=== PATIENT | male | born 1965 | race Caucasian/White ===

== ENCOUNTER 2017-11-20 16:31 | Inpatient (IN) | payer BC ==
[2017-11-20] MEDS ORDERED: HEPARIN SODIUM,PORCINE 5,000 UNIT/ML 1 ML VIAL IV STA (16:34)
[2017-11-20] MEDS ORDERED: MORPHINE SULFATE 4 MG/ML SYRINGE IV STA (16:35)
[2017-11-20] MEDS ORDERED: NITROGLYCERIN-D5W PMX 50 MG in DEXTROSE/WATER 1 250ML.BAG IV ONE (16:36)
[2017-11-20] MEDS ORDERED: ATORVASTATIN 80 MG TAB PO STA (16:40)
[2017-11-20] MEDS ORDERED: HEPARIN SOD,PORK IN 0.45% NACL 25,000 UNIT in 0.45% NACL 1 500ML.BAG IV SCH (16:45)
--- NOTE | 2017-11-20 16:45 | ED ---
Chest Pain HPI - General Stated Complaint: chest pain Time Seen by Provider: 11/20/17 16:34 Source: patient Mode of arrival: EMS Limitations: no limitations - History of Present Illness Initial Comments: This 52-year-old white male presents with the complaint of some chest pain. It is into the midsternal region and described as a pressure without radiation. It is associated with some shortness of breath. He states that it initially occurred approximately 2 days ago while shoveling. It is much more severe currently/today. He does present via EMS with evidence of an ST elevation myocardial infarction on prehospital EKG. He denies any known previous history of cardiac disease. He denies any known medical conditions. He does follow up with Dr. Maldonado for primary care issues. He receives aspirin via EMS as well as 2 sublingual nitroglycerin and 5 no grams of morphine without relief. He states that the symptoms are fairly severe. No other complaints or modifying factors. Review of Systems ROS Statement: Those systems with pertinent positive or pertinent negative responses have been documented in the HPI. ROS Other: All systems not noted in ROS Statement are negative. Past Medical History Past Medical History: No Reported History History of Any Multi-Drug Resistant Organisms: None Reported Additional Past Surgical History / Comment(s): torn retina Past Psychological History: No Psychological Hx Reported Smoking Status: Former smoker Past Alcohol Use History: None Reported Past Drug Use History: None Reported General Exam - General Exam Comments Initial Comments: GENERAL: The patient is well nourished and well hydrated. Appears in significant distress. VITAL SIGNS: Heart rate, blood pressure, respiratory rate reviewed as recorded in nurse's notes. EYES: Pupils are round and reactive. Extraocular movements are intact. No conjunctival / lid redness or swelling. ENT: No external evidence of injury, swelling, or ecchymosis. Airway is patent. Throat is clear. NECK: Nontender. No swelling or evidence of injury. No subcutaneous emphysema. Trachea is midline. No thyroid mass. HEART: Regular rate and rhythm. Good peripheral pulses. LUNGS/CHEST: Breath sounds clear and equal bilaterally. No rales, rhonchi, or wheezes. No ecchymosis, subcutaneous emphysema, or tenderness. ABDOMEN: Abdomen soft without tenderness. No palpable masses or organomegaly. No peritoneal signs. No abdominal wall swelling or ecchymosis. EXTREMITIES: No extremity tenderness. Normal muscle tone and function. No thoracolumbar tenderness. NEUROLOGIC: Sensation is grossly intact. Cranial nerve exam reveals face is symmetrical, tongue is midline, speech is clear. SKIN: No abrasions or ecchymosis is noted. No induration or masses noted. PSYCHIATRIC: Alert and oriented. Appropriate behavior and judgment. Limitations: no limitations Course Vital Signs 11/20/17 16:32 Temperature 96.8 F L Pulse Rate 76 Respiratory 18 Rate Blood Pressure 167/76 O2 Sat by Pulse 100 Oximetry Chest Pain MDM - [facility] The patient was seen and examined. All diagnostics were reviewed thus far. This only did include an EKG which shows evidence of an anteroseptal myocardial infarction. This shows a normal sinus rhythm. There is some associated ST elevation in the lateral leads as well. The cardiology team was contacted prior to arrival and does meet the patient in the emergency department as well. Some initial orders are placed the patient is directly transferred up to the heart sanitation laborer very shortly after arrival for further heart cath and subsequent intervention. Case will be discussed with internal medicine shortly for admission with cardiology to consult. Disposition Clinical Impression: STEMI (ST elevation myocardial infarction), Chest pain, Dyspnea Disposition: ADMITTED IP TO THIS HOSP Condition: Critical Referrals: None,Stated [Primary Care Provider] - 1-2 days Time of Disposition: 16:44 Decision Date: 11/20/17 Decision Time: 16:44
[2017-11-20 16:54] LABS: HCT 42.2 % (39.0-53.0); HGB 13.5 gm/dL (13.0-17.5); MCH 29.3 pg (25.0-35.0); MCV 91.7 fL (80.0-100.0); Mean Platelet Volume 7.4; Platelet Count 352 k/uL (150-450); RBC 4.61 m/uL (4.30-5.90); RDW 12.5 % (11.5-15.5); WBC 16.7 k/uL (3.8-10.6)
[2017-11-20] MEDS: LIDOCAINE 2% INJ 20 MG/ML SQ ONE ×2 (16:59→17:58)
[2017-11-20] MEDS ORDERED: MIDAZOLAM 2 MG/2 ML VIAL ONE (17:00)
[2017-11-20] MEDS ORDERED: fentaNYL (PF) 50 MCG/ML 2 ML AMP ONE (17:01)
[2017-11-20] MEDS ORDERED: LIDOCAINE 2% INJ 20 MG/ML SQ ONE (17:04)
[2017-11-20] MEDS ORDERED: fentaNYL (PF) 50 MCG/ML 2 ML AMP IV ONE (17:04)
[2017-11-20] MEDS ORDERED: MIDAZOLAM 2 MG/2 ML VIAL IV ONE (17:04)
[2017-11-20] MEDS ORDERED: BIVALIRUDIN BOLUS 250 MG/50 ML IV ONE (17:05)
[2017-11-20 17:06] LABS: ALT 34 U/L (21-72); AST 19 U/L (17-59); Albumin 4.1 g/dL (3.5-5.0); Alkaline Phosphatase 55 U/L (38-126); Anion Gap 13 mmol/L; Blood Urea Nitrogen 18 mg/dL (9-20); Calcium 9.8 mg/dL (8.4-10.2); Carbon Dioxide 22 mmol/L (22-30); Chloride 105 mmol/L (98-107); Glucose 124 mg/dL (74-99); Potassium 3.7 mmol/L (3.5-5.1); Sodium 140 mmol/L (137-145); Total Bilirubin 0.2 mg/dL (0.2-1.3); Total Protein 6.3 g/dL (6.3-8.2)
[2017-11-20] MEDS ORDERED: BIVALIRUDIN 250 MG in SODIUM CHLORIDE 0.9% 50 ML IV ONE ×2 (17:06→17:45)
[2017-11-20] MEDS ORDERED: SODIUM CHLORIDE 0.9% 500 ML IV ONE ×2 (17:07)
[2017-11-20 17:12] LABS: Prothrombin Time 9.7 sec (9.0-12.0)
[2017-11-20] MEDS ORDERED: LIDOCAINE 2% SYG (PF) 100 MG/5 ML IV ONE ×2 (17:15)
[2017-11-20 17:18] LABS: Partial Thromboplastin Time 20.4 sec (22.0-30.0)
[2017-11-20] MEDS ORDERED: METOPROLOL TARTRATE 5 MG/5 ML VIAL IVP ONE ×2 (17:20→17:21)
[2017-11-20] MEDS ORDERED: POTASSIUM CHLORIDE 10 MEQ in WATER FOR INJECTION 1 100ML.BAG IVPB STA (17:26)
[2017-11-20] MEDS: NITROGLYCERIN 1000MCG/10ML SYRINGE INTRACORON ONE ×2 (17:30→17:45)
[2017-11-20 17:31] LABS: Creatine Kinase MB 0.7 ng/mL (0.0-2.4)
[2017-11-20] MEDS ORDERED: DIGOXIN 250 MCG/ML 2 ML AMP IVP STA (17:31)
[2017-11-20 17:41] LABS: Troponin I 0.12 ng/mL (0.000-0.034)
[2017-11-20] MEDS ORDERED: IOHEXOL 350 MG/ML (PER ML) 100ML BTL INJ ONE ×2 (17:46)
[2017-11-20] MEDS ORDERED: PRASUGREL 10 MG TAB ONE (17:50)
[2017-11-20] MEDS ORDERED: PRASUGREL 10 MG TAB PO ONE (17:52)
[2017-11-20] MEDS ORDERED: HYDROmorphone 2 MG/ML 1 ML SYRINGE ONE (17:55)
[2017-11-20] MEDS ORDERED: HYDROmorphone 2 MG/ML 1 ML SYRINGE IV ONE (17:57)
[2017-11-20] MEDS ORDERED: ACETAMINOPHEN TAB 325 MG TAB PO PRN (18:02)
[2017-11-20] MEDS ORDERED: NALOXONE 0.4 MG/ML 1 ML VIAL IV PRN (18:02)
[2017-11-20] MEDS ORDERED: MELATONIN 3 MG TABLET PO PRN (18:02)
[2017-11-20] MEDS ORDERED: ATROPINE SULFATE 0.1 MG/ML 10ML SYRINGE IV PRN (18:17)
[2017-11-20] MEDS ORDERED: MAG HYDROX/AL HYDROX/SIMETH 30 ML CUP PO PRN (18:17)
[2017-11-20] MEDS ORDERED: RX INFO: IV CONTRAST WAS GIVEN 1 EACH MISC MISCELLANE PRN (18:17)
[2017-11-20] MEDS ORDERED: ZOLPIDEM 5 MG TAB PO PRN (18:17)
[2017-11-20] MEDS ORDERED: NITROGLYCERIN SL TABS 0.4 MG TAB SUBLINGUAL PRN (18:17)
[2017-11-20 18:37] LABS: Glucose,Whole Blood 112 mg/dL (75-99)
[2017-11-20] MEDS: SODIUM CHLORIDE 0.9% 1,000 ML IV SCH ×2 (18:41→18:42)
[2017-11-20] MEDS: CARVEDILOL 3.125 MG TAB PO SCH (18:46)
[2017-11-20 19:08] VITALS: BMI 32.1
[2017-11-20] MEDS: LOSARTAN 25 MG TAB PO SCH (21:24)
[2017-11-20] MEDS: FAMOTIDINE 20 MG TAB PO SCH (21:24)
[2017-11-21 00:48] LABS: Partial Thromboplastin Time 26.1 sec (22.0-30.0); Prothrombin Time 9.9 sec (9.0-12.0)
[2017-11-21] MEDS: HEPARIN SODIUM,PORCINE 5,000 UNIT/ML 1 ML VIAL IV PRN ×2 (01:39→06:50)
[2017-11-21 05:03] LABS: Creatine Kinase MB 93.2 ng/mL (0.0-2.4)
[2017-11-21 05:04] LABS: Troponin I 45.1 ng/mL (0.000-0.034)
[2017-11-21 06:20] LABS: Basophils % (A) 0 %; Eosinophils # (A) 0.2 k/uL (0-0.7); Eosinophils % (A) 1 %; HCT 44.6 % (39.0-53.0); HGB 13.8 gm/dL (13.0-17.5); Lymphocytes # (A) 2.3 k/uL (1.0-4.8); Lymphocytes % (A) 12 %; MCH 28.8 pg (25.0-35.0); MCHC 30.8 g/dL (31.0-37.0); MCV 93.5 fL (80.0-100.0); Mean Platelet Volume 7.3; Monocytes # (A) 0.9 k/uL (0-1.0); Monocytes % (A) 5 %; Neutrophils % (A) 81 %; Platelet Count 273 k/uL (150-450); RBC 4.77 m/uL (4.30-5.90); RDW 12.7 % (11.5-15.5); WBC 18.6 k/uL (3.8-10.6)
[2017-11-21 06:32] LABS: Anion Gap 9 mmol/L; Blood Urea Nitrogen 15 mg/dL (9-20); Calcium 9.1 mg/dL (8.4-10.2); Carbon Dioxide 23 mmol/L (22-30); Chloride 108 mmol/L (98-107); Glucose 132 mg/dL (74-99); Magnesium 1.9 mg/dL (1.6-2.3); Potassium 4.2 mmol/L (3.5-5.1); Sodium 140 mmol/L (137-145)
--- NOTE | 2017-11-21 07:01 | CC ---
CARDIAC CATHETERIZATION REPORT DATE OF SERVICE: 11/20/2017. PROCEDURES: 1. Left heart catheterization and coronary angiography. 2. PTCA and stenting of totally occluded ostial LAD in the setting of a ST-elevation CA. Reperfusion achieved in 48 minutes. 3. PTCA and stenting of a high-grade 80% mid LAD after the origin of the diagonal branch with a drug-eluting stent. PERFORMED BY: Dr. Ulysses Rajan. ANESTHESIA: Moderate conscious sedation time 61 minutes. CLINICAL INFORMATION: Mr. Denny Alexander is a 52-year-old gentleman who has complaints of some arthritis smokes 1 to 1-1/2 pack daily. Does not have any other risk factors. His primary care physician is Dr. Maldonado. He has not had any stress test in the recent or remote past. About 2 days ago, he had chest pain strongly suggestive of angina while he was shoveling snow which he ignored and did not seek medical attention and today while at work, he had a prolonged pain with diaphoresis, radiation to both upper extremities and he came into the emergency room with a ST elevation CA involving the anterior leads and was advised prompt cardiac catheterization. The patient was hemodynamically stable. There was no family to talk to when I began the procedure. CARDIAC CATHETERIZATION FINDINGS: 1. Right-dominant system with a 40-50% mid RCA lesion. 2. No significant disease in the circumflex. 3. Left main is a very small vessel, patent. 4. 100% occlusion of the LAD at the ostium. 5. PTCA and stenting of ostial LAD with a 3.0 caliber 15 mm long Xience drug-eluting stent. 6. After the LAD was opened up, mid LAD had a lesion of 80%. This was addressed with a 2.75 caliber 8 mm long Xience stent. 7. Left ventricle end-diastolic pressure was 18-19 mmHg without gradient across the aortic valve. A Perclose was used to secure hemostasis, but continued to ooze and therefore Femstop was applied. PROCEDURE NOTE: Under local anesthesia and strict aseptic precautions, a 6-Kittitian introducer was placed in the right femoral artery using a 3.5 curved left Samina type guide catheter I performed selective coronary angiography of left system and performed intervention of the LAD and then performed selective coronary angiography of RCA and also checked LV pressures but did not perform an LV-gram. The patient received Angiomax bolus and infusion as per protocol. He also received 60 mg of Effient. He developed runs of ventricular tachycardia requiring intravenous lidocaine and also paroxysmal atrial tachycardia for which I gave him a single dose of digoxin in addition to intravenous Lopressor. Patient was in sinus rhythm with a total resolution of chest pain after the procedure and his ST-segment elevation improved remarkably. He remained hemodynamically stable. A Perclose was used to secure hemostasis, but there continued to be some oozing and therefore Femstop was applied. I used a BMW wire to cross the lesion and a JL3.5 guide catheter of 6-Kittitian caliber. Two drug-eluting stents were deployed. The patient tolerated the procedure well. CARDIAC CATHETERIZATION FINDINGS: Left ventricular end-diastolic pressure was 18-19 mmHg without any gradient across aortic valve. CORONARY ANGIOGRAPHY FINDINGS: 1. Right coronary artery: Technically a dominant vessel. Has about a 40% mid lesion distally bifurcates into a good-sized PDA and PLV. There is moderate calcification involving the proximal portion of the RCA. No other significant lesions were noted. PDA and PLV are of good caliber and supplies a sizable amount of myocardium. RCA is a dominant vessel. 2. Left main coronary artery: Short patent disease-free vessel that bifurcates into LAD and circumflex. 3. Left anterior descending coronary artery: This vessel is totally occluded, seen as a stump at the ostium without any antegrade flow. 4. Left posterior circumflex coronary artery: This is a nondominant vessel of good caliber and distribution distally continues as a posterolateral branch has minor irregularities. No significant disease. 5. Left ventriculogram: This was not performed. FINAL IMPRESSION: This patient has a total occlusion of LAD and a PCI was advised and performed immediately with excellent result. PCI PROCEDURE DETAILS: PCI was accomplished expeditiously. The vessel was opened up in 48 minutes with resolution of chest pain and improvement in EKG and patient remained hemodynamically stable. He had 2 drug-eluting stents, 1 in the ostial LAD of 3.0 caliber 15 mm length and this was a drug-eluting Xience stent. Mid LAD was addressed with a 2.75 caliber 8 mm long drug-eluting Xience stent. Results were discussed with the patient, his and 2 daughters. He was sent to the ICU in a stable condition with a FemoStop. MMODL / IJN: [id number] /
--- NOTE | 2017-11-21 07:04 | LTR ---
DATE OF SERVICE: 11/20/[address] Maldonado: Please find enclosed my detailed cardiac cath and PTCA report for your records. This gentleman presented with acute anterior wall OH, underwent prompt stenting of ostial LAD and mid LAD with excellent results. Hopefully we have limited the amount of myocardial damage. Based on clinical course, I expect he will be in the hospital for the next 3 days or so. I have counseled the patient regarding the need to quit smoking. He will be on dual antiplatelet therapy without interruption for one year. Thank you for a referral and please call for questions. With kindest regards, Sincerely yours, Ulysses Rajan MD. RODGER / DEIDRAN: [id number] /
--- NOTE | 2017-11-21 07:10 | CONS ---
CONSULTATION Mr. Denny Alexander is a 52-year-old gentleman who sees Dr. Maldonado in the outpatient setting. He smokes 1-1/2 pack daily. He does not have any other major risk factors. His cholesterol status is unknown. He has arthritis pain for which he takes Motrin on a p.r.n. basis. Two days ago while shoveling snow, he developed chest pain suggestive of angina for which he did not seek any medical attention. Today while he was at work, he developed chest pain with radiation to both upper extremities associated with some diaphoresis and he was brought in by EMS and there was evidence of ST elevation and labor delivery rn was alerted promptly. He received some ambulance and some 2 sublingual nitroglycerin with modest relief. He also received some morphine. I evaluated him in the labor delivery rn. The patient had chest pain of 5/10, had anterior ST elevation, but was hemodynamically stable. PAST MEDICAL HISTORY: Unremarkable other than arthritis for which he takes Motrin. 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 He has no known diagnosis of hypertension, diabetes, myocardial infarction or CVA. SOCIAL HISTORY: Patient said he smokes 1 to 1-1/2 packs cigarettes. Initially started with half a pack but admitted to 1-1/2 pack daily as did his . He does not consume alcohol on a regular basis. MEDICATIONS: Are none. ALLERGIES: ALLERGIC TO AMOXICILLIN. REVIEW OF SYSTEMS: Remarkable for chest pain 2 days ago and again this morning. Has no hematemesis, melena, genitourinary symptoms, fever with chills or cough with expectoration. EXAMINATION: Blood pressure is 127/80, pulse rate is about 70 per minute. HEENT unremarkable fundus was not examined by me. NECK: Supple. No JVD. I do not hear a carotid bruit. Heart exam reveals S1, S2 heard normally but distantly lungs are clear with fair air entry. Abdomen is soft, nontender. Lower extremities reveal palpable pulses. No edema. Central nervous system is normal. EKG revealed sinus rhythm with anterior ST elevation. IMPRESSION: 1. Acute anterior ST-elevation myocardial infarction. 2. History of smoking. 3. Degenerative joint disease. RECOMMENDATIONS: I am recommending prompt cardiac cath and intervention. I explained to the patient rationale, risks, benefits, options and proceeded to perform procedure expeditiously. MMODL / IJN: [id number] /
[2017-11-21] MEDS: FAMOTIDINE 20 MG TAB PO SCH ×2 (08:10→21:45)
[2017-11-21] MEDS: ASPIRIN 81 MG PO SCH (08:10)
[2017-11-21] MEDS: CARVEDILOL 3.125 MG TAB PO SCH ×2 (08:10→16:46)
[2017-11-21] MEDS: MAGNESIUM SULFATE-D5W PMX 1 GM in DEXTROSE/WATER 1 100ML.BAG IVPB SCH ×2 (08:10→09:16)
[2017-11-21] MEDS: CHOLECALCIFEROL 1,000 UNIT TAB PO SCH (08:11)
[2017-11-21] MEDS: SODIUM CHLORIDE 0.9% 1,000 ML IV SCH ×3 (08:11→21:42)
[2017-11-21] MEDS: PRASUGREL 10 MG TAB PO SCH (08:11)
--- NOTE | 2017-11-21 10:28 | ECHOF ---
Referral Reason:Acute Ant STEMI S/P PCI of LAD MEASUREMENTS -------- HEIGHT: 180.3 cm WEIGHT: 104.3 kg BP: 120/69 RVIDd: 2.1 cm (< 3.3) IVSd: 1.6 cm (0.6 - 1.1) LVIDd: 5.3 cm (3.9 - 5.3) LVPWd: 1.1 cm (0.6 - 1.1) IVSs: 1.9 cm LVIDs: 4.1 cm LVPWs: 1.5 cm LAESV Index (A-L): 25.97 ml/m Ao Diam: 4.3 cm (2.0 - 3.7) AV Cusp: 2.4 cm (1.5 - 2.6) LA Diam: 3.6 cm (2.7 - 3.8) MV EXCURSION: 19.436 mm (> 18.000) MV EF SLOPE: 146 mm/s (70 - 150) EPSS: 1.4 cm MV E Shamar: 0.80 m/s MV DecT: 175 ms MV A Shamar: 0.79 m/s MV E/A Ratio: 1.01 RAP: 5.00 mmHg RVSP: 9.13 mmHg FINDINGS -------- Sinus rhythm. This was a technically good study. The left ventricular size is normal. There is mild concentric left ventricular hypertrophy. Overa ll left ventricular systolic function is moderate-severely impaired with, an EF between 30 - 35 %. Mid anterior LV wall motion is hypokinetic. Apical anterior LV wall motion is hypokinetic. Apic al lateral LV wall motion is hypokinetic. Apical inferior LV wall motion is hypokinetic. Apical septum LV wall motion is hypokinetic. Anterseptal Hypokinesis Septal Hypokinesis The right ventricle is normal in size and function. The left atrium is normal in size. The right atrium is normal in size. The aortic valve is trileaflet, and appears structurally normal. No aortic stenosis or regurgitation. The mitral valve is normal. There is trace mitral regurgitation. Trace tricuspid regurgitation present. The right ventricular systolic pressure, as measured by Dopp ler, is 9.13mmHg. There is no pulmonic regurgitation present. The aortic root is mildy dilated measuring 4.3 cm Normal inferior vena cava with normal inspiratory collapse consistent with estimated right atrial pre ssure of 5 mmHg. There is no pericardial effusion. CONCLUSIONS -------- 1. Sinus rhythm. 2. This was a technically good study. 3. The left ventricular size is normal. 4. There is mild concentric left ventricular hypertrophy. 5. Overall left ventricular systolic function is moderate-severely impaired with, an EF between 30 - 35 %. 6. Mid anterior LV wall motion is hypokinetic. 7. Apical anterior LV wall motion is hypokinetic. 8. Apical lateral LV wall motion is hypokinetic. 9. Apical inferior LV wall motion is hypokinetic. 10. Apical septum LV wall motion is hypokinetic. 11. Anterseptal Hypokinesis 12. Septal Hypokinesis 13. The left atrium is normal in size. 14. The aortic valve is trileaflet, and appears structurally normal. No aortic stenosis or regurgitat ion. 15. There is trace mitral regurgitation. 16. Trace tricuspid regurgitation present. 17. The right ventricular systolic pressure, as measured by Doppler, is 9.13mmHg. 18. There is no pulmonic regurgitation present. 19. The aortic root is mildy dilated measuring 4.3 cm. 20. Normal inferior vena cava with normal inspiratory collapse consistent with estimated right atrial pressure of 5 mmHg. 21. There is no pericardial effusion. DIRECTOR GLOBAL MARKET RESEARCH: Ana Maria Stahl RDCS
--- NOTE | 2017-11-21 10:47 | P.PN ---
Subjective Progress Note Date: 11/21/17 This is a 51-year-old gentleman who was admitted yesterday with a prolonged chest pain and evidence of anterior wall myocardial infarction. Patient had stent placement of the LAD by Dr. SHELLY Rajan. Patient is feeling better today. Denies any chest pain, shortness of breath or dizziness. Lungs are clear. Heart is regular. No JVD. No peripheral edema. Echo Cardigan showed severe hypokinesis of the anteroapical and septal area with an ejection fraction of 30- 35%. Patient is on Coreg, TANISHA inhibitor and lipid-lowering agent along with a dual antiplatelets. Will transfer him to telemetry unit and increase activity as tolerated. Further examination depend upon the clinical course Objective - Vital Signs Vital signs: Vital Signs Temp 98.7 F 11/21/17 08:00 Pulse 81 11/21/17 10:00 Resp 23 11/21/17 10:00 BP 141/69 11/21/17 10:00 Pulse Ox 96 11/21/17 10:00 Intake & Output 11/20/17 11/21/17 11/21/17 18:59 06:59 18:59 Intake Total 192.6 1430.453 740 Output Total 825 Balance 192.6 605.453 740 Weight 104.326 kg 104.7 kg 104.7 kg Intake: IV 192.6 Intake, IV Titration 1180.453 500 Amount Heparin Sod,Pork in 0.45% 280.453 NaCl 25,000 unit In 0.45 % NaCl 1 500ml.bag @ 9.59 UNITS/KG/HR 20 mls/hr IV .Q24H АННА Rx#:[id number] Magnesium Sulfate-D5w Pmx 200 1 gm In Dextrose/Water 1 100ml.bag @ 100 mls/hr IVPB Q1H АННА Rx#: [id number] Sodium Chloride 0.9% 1, 900 300 000 ml @ 75 mls/hr IV . [id number] АННА Rx#:[id number] Oral 240 Tube Feeding 250 Output: Urine 825 Other: Voiding Method Urinal # Voids 1 1 - Exam GENERAL EXAM: Patient is alert and oriented and doesn't appear to be in any acute distress HEENT: Normocephalic. Normal reaction of pupils, equal size, normal range of extraocular motion. No erythema or exudates in the throat. NECK: No masses, no nuchal rigidity. CHEST: No chest wall deformity. LUNGS: Equal air entry with no crackles or wheeze. HEART: S1 and S2 normal with no audible mumurs or gallops. Regular rhythm, femorals equal on both sides.. ABDOMEN: No hepatosplenomegaly, normal bowel sounds, no guarding or rigidity. SKIN: No rashes CENTRAL NERVOUS SYSTEM: No focal deficits. EXTREMITIES: No cyanosis, clubbing or edema. The puncture site: Soft without any hematoma. - Labs CBC & Chem 7: 11/21/17 05:32 11/21/17 05:32 Labs: Abnormal Lab Results - Last 24 Hours (Table) 11/20/17 11/20/17 11/20/17 Range/Units 16:32 16:32 16:32 WBC 16.7 H (3.8-10.6) k/uL MCHC (31.0-37.0) g/dL Neutrophils # (1.3-7.7) k/uL APTT (22.0-30.0) sec Chloride (98-107) mmol/L Glucose 124 H (74-99) mg/dL POC Glucose (mg/dL) (75-99) mg/dL CK-MB (CK-2) (0.0-2.4) ng/mL Troponin I 0.120 H* (0.000-0.034) ng/mL 11/20/17 11/20/17 11/20/17 Range/Units 16:32 18:35 22:33 WBC (3.8-10.6) k/uL MCHC (31.0-37.0) g/dL Neutrophils # (1.3-7.7) k/uL APTT 20.4 L (22.0-30.0) sec Chloride (98-107) mmol/L Glucose (74-99) mg/dL POC Glucose (mg/dL) 112 H (75-99) mg/dL CK-MB (CK-2) (0.0-2.4) ng/mL Troponin I 29.400 H* (0.000-0.034) ng/mL 11/21/17 11/21/17 11/21/17 Range/Units 03:41 05:32 05:32 WBC 18.6 H (3.8-10.6) k/uL MCHC 30.8 L (31.0-37.0) g/dL Neutrophils # 15.0 H (1.3-7.7) k/uL APTT (22.0-30.0) sec Chloride 108 H (98-107) mmol/L Glucose 132 H (74-99) mg/dL POC Glucose (mg/dL) (75-99) mg/dL CK-MB (CK-2) 93.2 H* (0.0-2.4) ng/mL Troponin I 45.100 H* (0.000-0.034) ng/mL 11/21/17 11/21/17 Range/Units 05:32 05:32 WBC (3.8-10.6) k/uL MCHC (31.0-37.0) g/dL Neutrophils # (1.3-7.7) k/uL APTT 40.1 H (22.0-30.0) sec Chloride (98-107) mmol/L Glucose (74-99) mg/dL POC Glucose (mg/dL) (75-99) mg/dL CK-MB (CK-2) (0.0-2.4) ng/mL Troponin I 42.900 H* (0.000-0.034) ng/mL Assessment and Plan (1) Chest pain Current Visit: Yes Status: Acute Code(s): R07.9 - CHEST PAIN, UNSPECIFIED SNOMED Code(s): 29345790 (2) STEMI (ST elevation myocardial infarction) Current Visit: Yes Status: Acute Code(s): I21.3 - ST ELEVATION (STEMI) MYOCARDIAL INFARCTION OF [facility] SITE SNOMED Code(s): 372350933 Plan: Continue current management. Transfer to telemetry unit. Increase activity. Further recommendations depend upon the clinical course
[2017-11-21] MEDS ORDERED: NICOTINE POLACRILEX 2 MG GUM BUCCAL PRN (13:44)
--- NOTE | 2017-11-21 13:47 | P.HPIM ---
History of Present Illness H&P Date: 11/21/17 Chief Complaint: Chest pain HISTORY OF PRESENT ILLNESS: 52-year-old male patient of Dr. Rickey Parisi with chronic stable medical conditions that include chronic cigarette smoker and arthritis, presents to the emergency department with complaints of chest pain. Midsternal described as pressure without radiation with associated shortness of breath. BUN about 2 days ago while shoveling snow. While at work on 11/20/2017 he developed prolonged chest pain with diaphoresis radiation to both upper extremities, It was much more severe today than it was previously. Arrived via EMS prehospital EKG reveals ST elevation myocardial infarction. Was taken directly to the cardiac catheterization lab. Patient had total occlusion of the left anterior descending artery and a PCI was performed received 2 drug-eluting stents one of the ostial LAD and mid LAD. REVIEW OF SYSTEMS GEN.: [ Tired] EYES: [None] HEENT: [None] NECK: [None] RESPIRATORY: [Some shortness of breath] CARDIOVASCULAR: [Chest pain yesterday and today with diaphoresis and radiation] GASTROINTESTINAL: [None] GENITOURINARY: [None] MUSCULOSKELETAL: [Back pain] LYMPHATICS: [None] HEMATOLOGICAL: [None] PSYCHIATRY: [None] NEUROLOGICAL: [None] PAST MEDICAL HISTORY Past medical history: Arthritis Past surgical history: Past psychological history: None SOCIAL HISTORY: Additional psychological/social history: None Smoking use history: Current smoker smoking 1-1-1/2 packs per day 30 years Alcohol use history: Denies Drug use history: Denies Marital status: Living situation: Lives with 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 ALLERGIES: NO KNOWN ALLERGIES HOME MEDICATION: Vitamin B-12 one tablet by mouth daily Ibuprofen 800 mg by mouth twice a day when necessary Cholecalciferol 2000 unit's by mouth daily. VITAL SIGNS: [Reviewed. BMI noted] GENERAL: [Average built, sitting up, comfortable]. EYES: [Pupils equal. Conjunctiva penny]l. HENT: [Normocephalic,External appearance of nose and ears normal, oral cavity grossly normal]. NECK: [JVD not raised; masses not palpable]. HEART: [First and second heart sounds are normal; no edema]. LUNGS:[ Respiratory rate normal; clear to auscultation]. ABDOMEN: [Soft, nontender, liver spleen not palpable, no masses palpable]. LYMPHATICS: [No lymph nodes palpable in the axilla and neck]. PSYCH: [Alert and oriented x3; mood and affect penny]l. NEUROLOGICAL: [Cranial nerves grossly intact; no facial asymmetry, power and sensation grossly intact]. INVESTIGATIONS: LABS: White blood cell count 18.6, chloride 108, troponin from 11/20/2017 29.4, 11/21/2017: 45.1, 42.9. ASSESSMENT: -ST elevation [place] with total occlusion of the left anterior descending artery, status post PTCA with 2 drug-eluting stents placed in the LAD. -Osteoarthritis of multiple joints, bilateral. -Chronic nicotine dependence in a patient who is a current cigarette smoker smoking 1-1-1/2 packs a day. PLAN: Home medications reordered, IV fluids continue. Nicotine patch and gum ordered. Smoking cessation counseling provided. Additional medications includes Coreg, TANISHA inhibitor, lipid-lowering agent along with dual antiplatelet medication. Plan of care discussed at the bedside we will follow closely. CONTENT CURATOR STATEMENT: Patient was seen and examined by nurse practitioner Haylee Clark and all elements of the case were discussed with attending Dr. Cade. Past Medical History Past Medical History: No Reported History History of Any Multi-Drug Resistant Organisms: None Reported Additional Past Surgical History / Comment(s): torn retina Past Anesthesia/Blood Transfusion Reactions: No Reported Reaction Past Psychological History: No Psychological Hx Reported Smoking Status: Former smoker Past Alcohol Use History: None Reported Past Drug Use History: None Reported Medications and Allergies Home Medications Medication Instructions Recorded Confirmed Type Cholecalciferol (Vitamin D3) 2,000 unit PO DAILY 11/20/17 11/20/17 History [Vitamin D3] Ibuprofen [Motrin] 800 mg PO BID PRN 11/20/17 11/20/17 History Vitamin B (Unknown Dose) 1 tab PO DAILY 11/20/17 11/20/17 History Allergies Allergy/AdvReac Type Severity Reaction Status Date / Time No Known Allergies Allergy Verified 11/20/17 19:18 Physical Exam Vitals: Vital Signs Temp Pulse Pulse Resp BP BP Pulse Ox 11/21/17 08:00 98.7 F 86 17 142/82 98 11/21/17 07:30 98.7 F 84 20 125/73 97 11/21/17 07:00 69 12 131/71 97 11/21/17 06:30 77 11 L 120/69 98 11/21/17 06:00 78 8 L 132/58 97 11/21/17 05:30 78 9 L 140/64 97 11/21/17 05:00 76 9 L 166/89 97 11/21/17 04:30 79 9 L 141/70 97 11/21/17 04:00 98.5 F 78 10 L 140/82 98 11/21/17 03:30 84 13 143/79 97 11/21/17 03:00 78 11 L 145/75 98 11/21/17 02:30 73 12 149/85 97 11/21/17 02:00 73 10 L 158/74 98 11/21/17 01:30 72 11 L 153/77 97 11/21/17 01:00 69 11 L 155/82 98 11/21/17 00:30 65 9 L 148/83 99 11/21/17 00:06 68 8 L 151/79 99 11/21/17 00:00 98.5 F 64 9 L 151/79 99 11/20/17 23:30 65 10 L 156/79 98 11/20/17 23:00 62 15 158/82 99 11/20/17 22:30 62 11 L 131/83 99 11/20/17 22:00 70 12 150/80 98 11/20/17 21:30 66 9 L 142/80 98 11/20/17 21:00 67 9 L 148/84 99 11/20/17 20:30 82 18 147/77 98 11/20/17 20:00 98.3 F 80 12 150/91 99 11/20/17 19:30 77 16 150/87 99 11/20/17 19:10 82 13 150/87 99 11/20/17 19:02 87 18 150/87 100 11/20/17 19:00 97.6 F 89 17 149/76 99 11/20/17 18:50 84 20 149/76 100 11/20/17 18:47 97.6 F 81 16 149/76 100 11/20/17 18:40 83 14 99 11/20/17 18:30 83 8 L 100 11/20/17 18:29 76 14 11/20/17 16:53 97.6 F 81 18 149/76 11/20/17 16:32 96.8 F L 76 18 167/76 100 Intake and Output 11/20/17 11/21/17 11/21/17 22:59 06:59 14:59 Intake Total 492.6 1130.453 490 Output Total 825 Balance 492.6 305.453 490 Intake: IV 192.6 Intake, IV Titration 300 880.453 250 Amount Heparin Sod,Pork in 0.45% 280.453 NaCl 25,000 unit In 0.45 % NaCl 1 500ml.bag @ 9.59 UNITS/KG/HR 20 mls/hr IV .Q24H АННА Rx#:[id number] Magnesium Sulfate-D5w Pmx 100 1 gm In Dextrose/Water 1 100ml.bag @ 100 mls/hr IVPB Q1H АННА Rx#: [id number] Sodium Chloride 0.9% 1, 300 600 150 000 ml @ 75 mls/hr IV . [id number] АННА Rx#:[id number] Oral 240 Tube Feeding 250 Output: Urine 825 Other: # Voids 0 1 Weight 104.326 kg 104.7 kg Results CBC & Chem 7: 11/21/17 05:32 11/21/17 05:32 Labs: Abnormal Lab Results - Last 24 Hours (Table) 11/20/17 11/20/17 11/20/17 Range/Units 16:32 16:32 16:32 WBC 16.7 H (3.8-10.6) k/uL MCHC (31.0-37.0) g/dL Neutrophils # (1.3-7.7) k/uL APTT (22.0-30.0) sec Chloride (98-107) mmol/L Glucose 124 H (74-99) mg/dL POC Glucose (mg/dL) (75-99) mg/dL CK-MB (CK-2) (0.0-2.4) ng/mL Troponin I 0.120 H* (0.000-0.034) ng/mL 11/20/17 11/20/17 11/20/17 Range/Units 16:32 18:35 22:33 WBC (3.8-10.6) k/uL MCHC (31.0-37.0) g/dL Neutrophils # (1.3-7.7) k/uL APTT 20.4 L (22.0-30.0) sec Chloride (98-107) mmol/L Glucose (74-99) mg/dL POC Glucose (mg/dL) 112 H (75-99) mg/dL CK-MB (CK-2) (0.0-2.4) ng/mL Troponin I 29.400 H* (0.000-0.034) ng/mL 11/21/17 11/21/17 11/21/17 Range/Units 03:41 05:32 05:32 WBC 18.6 H (3.8-10.6) k/uL MCHC 30.8 L (31.0-37.0) g/dL Neutrophils # 15.0 H (1.3-7.7) k/uL APTT (22.0-30.0) sec Chloride 108 H (98-107) mmol/L Glucose 132 H (74-99) mg/dL POC Glucose (mg/dL) (75-99) mg/dL CK-MB (CK-2) 93.2 H* (0.0-2.4) ng/mL Troponin I 45.100 H* (0.000-0.034) ng/mL 11/21/17 11/21/17 Range/Units 05:32 05:32 WBC (3.8-10.6) k/uL MCHC (31.0-37.0) g/dL Neutrophils # (1.3-7.7) k/uL APTT 40.1 H (22.0-30.0) sec Chloride (98-107) mmol/L Glucose (74-99) mg/dL POC Glucose (mg/dL) (75-99) mg/dL CK-MB (CK-2) (0.0-2.4) ng/mL Troponin I 42.900 H* (0.000-0.034) ng/mL Thrombosis Risk Factor Assmnt - Choose All That Apply Each Factor Represents 1 point: Acute [place], Age 41-60 years, Obesity (BMI >25) Thrombosis Risk Factor Assessment Total Risk Factor Score: 3 Thrombosis Risk Factor Assessment Level: Moderate Risk
[2017-11-21] MEDS: NICOTINE 21MG/24HR PATCH TRANSDERM SCH (16:43)
--- NOTE | 2017-11-21 19:43 | HP ---
HISTORY AND PHYSICAL DATE OF SERVICE: 11/21/17 ATTENDING NOTE: Patient seen and examined by me this morning. I discussed with nurse practitioner Amber. The patient presented with anterior chest wall pain. ruled in for acute ST-elevation myocardial infarction. Did have couple of stents to the LAD. The patient's and daughter at the bedside. EXAMINATION: Temperature 97, pulse 77, blood pressure 142/82, pulse ox 98% on 2 L. On examination, BMI 32.2. LUNGS: Decreased breath sounds. Cardiovascular: 1st and 2nd sounds normal. White count 16.7, potassium 3.7, troponin 0.1, 29.4. EKG ST elevation IN. ASSESSMENT: 1. Acute anterior ST-elevation myocardial infarction followed by emergent 2 stents to the LAD. 2. Chronic nicotine dependence patient is a cigarette smoker. 3. Primary osteoarthritis of multiple joints bilateral. 4. Obesity BMI 32.2. 5. Ischemic cardiomyopathy, ejection fraction 30-35% underlying coronary artery disease. 6. Leukocytosis likely secondary to acute myocardial infarction. PLAN: The patient is currently on aspirin, Lipitor,Coreg, Pepcid, Cozaar and Effient. Lying in bed. Smoking cessation counseling was done with the patient, in the presence of the family, given a nicotine patch. More than 3 minutes was spent on this aspect of the case. Copy to Dr. Maldonado. RODGER / DEIDRAN: [id number] /
[2017-11-21] MEDS: LOSARTAN 25 MG TAB PO SCH (21:45)
[2017-11-21] MEDS: ATORVASTATIN 80 MG TAB PO SCH (21:45)
[2017-11-22] MEDS: NICOTINE 21MG/24HR PATCH TRANSDERM SCH (08:29)
[2017-11-22] MEDS: CARVEDILOL 3.125 MG TAB PO SCH ×2 (08:29→17:28)
[2017-11-22] MEDS: SODIUM CHLORIDE 0.9% 1,000 ML IV SCH ×2 (08:30→20:28)
[2017-11-22] MEDS: PRASUGREL 10 MG TAB PO SCH (08:30)
[2017-11-22] MEDS: ASPIRIN 81 MG PO SCH (08:30)
[2017-11-22] MEDS: FAMOTIDINE 20 MG TAB PO SCH ×2 (08:30→20:33)
[2017-11-22] MEDS: CHOLECALCIFEROL 1,000 UNIT TAB PO SCH (08:30)
--- NOTE | 2017-11-22 15:05 | P.PN ---
Subjective Progress Note Date: 11/22/17 Principal diagnosis: Anterior wall IA This is a 52-year-old gentleman admitted to the hospital with an acute care wall IA. He underwent stenting of the LAD by Dr. Miki Rajan. Patient was seen and examined today, feels well, up ambulating in the jo without any difficulty. Echocardiogram with Doppler study was performed which revealed severe hypokinesia of the anterior apical and septal area with an ejection fraction of 30-35%. Dr. Coleman had a discussion with the patient today regarding LifeVest, this will be requested for him, and will be placed prior to discharge. Today, the patient is hemodynamically stable. Objective - Vital Signs Vital signs: Vital Signs Temp 97.8 F 11/22/17 08:30 Pulse 68 11/22/17 11:30 Resp 16 11/22/17 11:30 BP 117/74 11/22/17 11:30 Pulse Ox 96 11/22/17 11:30 Intake & Output 11/21/17 11/22/17 11/22/17 18:59 06:59 18:59 Intake Total 1610 475 360 Output Total 1200 Balance 1610 475 -840 Weight 104.7 kg 102.1 kg Intake: IV 225 Invasive Line 1 225 Intake, IV Titration 650 Amount Magnesium Sulfate-D5w Pmx 200 1 gm In Dextrose/Water 1 100ml.bag @ 100 mls/hr IVPB Q1H АННА Rx#: [id number] Sodium Chloride 0.9% 1, 450 000 ml @ 75 mls/hr IV . [id number] АННА Rx#:[id number] Oral 960 250 360 Output: Urine 1200 Other: Voiding Method Urinal Urinal Urinal # Voids 1 1 - Exam PHYSICAL EXAMINATION: HEENT: [Head is atraumatic, normocephalic. Pupils equal, round. Neck is supple. There is no elevated jugular venous pressure.] HEART EXAMINATION: [Heart S1, S2 normal. No murmur or gallop heard.] CHEST EXAMINATION:[ Lungs are clear to auscultation and precussion. No chest wall tenderness is noted on palpation or with deep breathing.] ABDOMEN: [ Soft, nontender. Bowel sounds are heard. No organomegaly noted]. EXTREMITIES:[ 2+ peripheral pulses with no evidence of peripheral edema and no calf tenderness noted]. NEUROLOGIC [patient is awake, alert and oriented -3.] . - Labs CBC & Chem 7: 11/21/17 05:32 11/21/17 05:32 Labs: Abnormal Lab Results - Last 24 Hours (Table) 11/21/17 Range/Units 16:01 Troponin I 26.300 H* (0.000-0.034) ng/mL Assessment and Plan Plan: Assessment and plan #1 acute anterior wall IA status post stenting of the LAD #2 hyperlipidemia #3 nicotine dependence #4 ischemic cardiomyopathy Plan Patient has been encouraged to be up ambulating in the hallway today. We will plan on discharge home in the next 24 hours if stable. Patient will have a LifeVest placed prior to discharge tomorrow for prevention of sudden cardiac . DNP note has been reviewed, I agree with a documented findings and plan of care. Patient was seen and examined.
--- NOTE | 2017-11-22 15:40 | P.PN ---
Progress Note - Text Progress Note Date: 11/22/17 DATE OF SERVICE: 11/22/2017 PRESENTING COMPLAINT: Chest pain-status post PCI 2 stents to the LAD HISTORY OF PRESENT ILLNESS: 52-year-old male who developed chest pain while he was shoveling snow and ignored symptoms. A few days later while at work patient developed prolonged chest pain with diaphoresis and radiation to both upper extremities. EMS called prehospital EKG revealed ST elevation myocardial infarction. Taken directly to the laboratory machinist for catheterization. Patient had a total occlusion of the left anterior descending artery and a PCI was performed receiving 2 drug- eluting stents 1 in the ostial LAD and mid LAD. INTERVAL HISTORY: 11/22/2017: Sitting up in bed appears comfortable. No further episodes of chest pain or any discomfort at all. No shortness of breath. Ambulatory to and from the bathroom and in the hallway. Tolerating his diet eating between 50 and 75% of his meals. Last BM prior to admission. REVIEW OF SYSTEMS: Done for constitutional ,cardiovascular, GI, pulmonary with relevant findings as above. CURRENT MEDICATIONS Tylenol, Maalox, aspirin, Lipitor, atropine, Coreg, vitamin D3, Pepcid, losartan , melatonin, Narcan, nicotine patch, gum, Nitrostat, Effient, Ambien. PHYSICAL EXAM VITAL SIGNS: Temperature 97.8, pulse 87, respiratory rate 16, blood pressure 107/67, oxygen saturation 96% on room air. GENERAL APPEARANCE: Lying in bed, not in distress. HENT: Normocephalic, JVD not raised. Mass not palpable. Oral cavity normal, external appearance of ears and nose normal. EYES:Pupils equal. Conjunctiva normal. RESPIRATORY: Respiratory effort normal. Lungs diminished bilaterally to auscultation. CARDIOVASCULAR: First and second sounds normal. No edema. ABDOMEN: Soft. Liver and spleen not palpable. No tenderness. No mass palpable. PSYCHIATRY: Alert and oriented x3. Mood and affect normal. INVESTIGATIONS: LABS: None new ASSESSMENT: -Acute anterior ST elevation myocardial infarction followed by 2 emergent stents to the LAD. -Chronic nicotine dependence patient is a smoker. -Primary osteoarthritis multiple joints, bilateral. -Obesity body mass index 32.2. -Ischemic cardiomyopathy, ejection fraction 30-35% underlying coronary artery disease. -Leukocytosis likely secondary to acute myocardial infarction. PLAN: Continue on aspirin Lipitor Coreg Pepcid Cozaar and Effient. Nicotine patch and gum provided smoking cessation counseling provided again at bedside. Plan of care discussed at bedside possible discharge planning for tomorrow. Patient is in agreement. We will follow closely. CIVIL ENGINEERING DRAFTSPERSON statement: Patient was seen and examined by nurse practitioner Haylee Clark and all elements of the case discussed with attending Dr. Cade
--- NOTE | 2017-11-22 19:11 | PN ---
PROGRESS NOTE DATE OF SERVICE: 11/22/2017 ATTENDING NOTE: The patient seen and examined by me. I discussed with my nurse practitioner, Ms. Clark. The patient doing well, sitting up. No chest pain, shortness of breath. EXAMINATION: Afebrile, pulse 67, respirations 16, blood pressure 107/67, pulse ox 96% on room air. LUNGS: Clear. CARDIOVASCULAR: First and second sounds normal. ASSESSMENT: 1. Acute anterior ST-elevation myocardial infarction with 2 stents to the left anterior descending. 2. Chronic nicotine dependence. 3. Ischemic cardiomyopathy. PLAN: Care was discussed with the patient. Again, smoking cessation was reinforced. Follow with Cardiology. MMODL / IJN: [id number] /
[2017-11-22] MEDS: ATORVASTATIN 80 MG TAB PO SCH (20:33)
[2017-11-22] MEDS: LOSARTAN 25 MG TAB PO SCH (20:33)
[2017-11-23 00:22] LABS: Cholesterol 172 mg/dL (<200); HDL Cholesterol 47 mg/dL (40-60); LDL Cholesterol,Calculated 85 mg/dL (0-99); Triglycerides 200 mg/dL (<150)
[2017-11-23] MEDS: PRASUGREL 10 MG TAB PO SCH (08:31)
[2017-11-23] MEDS: ASPIRIN 81 MG PO SCH (08:31)
[2017-11-23] MEDS: NICOTINE 21MG/24HR PATCH TRANSDERM SCH (08:31)
[2017-11-23] MEDS: CHOLECALCIFEROL 1,000 UNIT TAB PO SCH (08:31)
[2017-11-23] MEDS: FAMOTIDINE 20 MG TAB PO SCH (08:31)
[2017-11-23] MEDS: CARVEDILOL 3.125 MG TAB PO SCH (08:31)
[2017-11-23] MEDS: SODIUM CHLORIDE 0.9% 1,000 ML IV SCH (08:32)
[2017-11-23 11:14] VITALS: BP 111/69; PULSE 78; RESP 16; TEMP 98.8
[2017-11-23] MEDS ORDERED: VARENICLINE 0.5 MG TAB PO SCH (13:00)
--- NOTE | 2017-11-23 15:00 | P.PN ---
Subjective Progress Note Date: 11/23/17 Principal diagnosis: Anterior wall IN This is a 52-year-old gentleman admitted to the hospital with an acute care wall IN. He underwent stenting of the LAD by Dr. Miki Rajan. Patient was seen and examined today, feels well, up ambulating in the jo without any difficulty. Echocardiogram with Doppler study was performed which revealed severe hypokinesia of the anterior apical and septal area with an ejection fraction of 30-35%. Dr. Coleman had a discussion with the patient today regarding LifeVest, this will be requested for him, and will be placed prior to discharge. Today, the patient is hemodynamically stable. 11/23/2017 Patient was seen and examined this morning, denies any chest pain, no difficulty in breathing. He's been up ambulating without any difficulty. He may be able to be discharged home today from cardiology standpoint. We'll make him a follow-up appointment to see Dr. SHELLY Rajan in the office post discharge. Objective - Vital Signs Vital signs: Vital Signs Temp 98.8 F 11/23/17 11:14 Pulse 78 11/23/17 11:14 Resp 16 11/23/17 11:45 BP 111/69 11/23/17 11:14 Pulse Ox 92 L 11/23/17 11:14 Intake & Output 11/22/17 11/23/17 11/23/17 18:59 06:59 18:59 Intake Total 720 200 472 Output Total 1200 Balance -480 200 472 Weight 100.8 kg Intake: Oral 720 200 472 Output: Urine 1200 Other: Voiding Method Urinal Urinal # Voids 1 1 - Exam PHYSICAL EXAMINATION: HEENT: [Head is atraumatic, normocephalic. Pupils equal, round. Neck is supple. There is no elevated jugular venous pressure.] HEART EXAMINATION: [Heart S1, S2 normal. No murmur or gallop heard.] CHEST EXAMINATION:[ Lungs are clear to auscultation and precussion. No chest wall tenderness is noted on palpation or with deep breathing.] ABDOMEN: [ Soft, nontender. Bowel sounds are heard. No organomegaly noted]. EXTREMITIES:[ 2+ peripheral pulses with no evidence of peripheral edema and no calf tenderness noted]. NEUROLOGIC [patient is awake, alert and oriented -3.] . - Labs CBC & Chem 7: 11/21/17 05:32 11/21/17 05:32 Labs: Abnormal Lab Results - Last 24 Hours (Table) 11/21/17 Range/Units 05:32 Triglycerides 200 H (<150) mg/dL Assessment and Plan Plan: Assessment and plan #1 acute anterior wall IN status post stenting of the LAD #2 hyperlipidemia #3 nicotine dependence #4 ischemic cardiomyopathy Plan LifeVest has been placed, patient will be discharged home today, to follow-up with Dr. Miki Rajan in the office in one week. Patient will be discharged home on aspirin 81 mg daily, Lipitor 80 mg daily, Coreg 3.125 mg twice a day, Pepcid 20 mg twice a day, losartan 5 mg daily, Effient 10 mg daily, Chantix pack. And sublingual nitroglycerin as needed for chest pain. DNP note has been reviewed, I agree with a documented findings and plan of care. Patient was seen and examined.
--- NOTE | 2017-11-27 01:22 | DS ---
DISCHARGE SUMMARY DATE OF ADMISSION: 11/20/2017. DATE OF DISCHARGE: November 23, 2017. FINAL DIAGNOSES: 1. Acute ST-elevation myocardial infarction of the anterior wall requiring emergent stenting to the LAD. 2. Chronic nicotine dependence patient is a cigarette smoker. 3. Primary osteoarthritis multiple joints bilateral. 4. Obesity BMI 32.2. 5. Ischemic cardiomyopathy EF 30 to 35% from underlying coronary artery disease. 6. Leukocytosis likely secondary to acute myocardial infarction. HOSPITAL COURSE: This patient presented with ST elevation myocardial infarction, emergent stenting was done to the LAD. EF came back as above. By the time of discharge, up and about. No further cardiac symptoms. 2D echo results as above. CONSULTATION: Dr. Ulysses Rajan from Cardiology who also did a coronary intervention. DISCHARGE MEDICATIONS: 1. Vitamin D3 2000 units p.o. daily. 2. Aspirin 81 mg p.o. daily. 3. Lipitor 80 mg p.o. q.h.s. 4. Coreg 3.125 p.o. b.i.d. 5. Pepcid 20 mg p.o. b.i.d. 6. Cozaar 25 mg p.o. at bedtime. 7. Melatonin 3 mg p.o. q.h.s. p.r.n. 8. Nitrostat 0.4 sublingual q.5h p.r.n. 9. Effient 10 mg p.o. daily. 10.Chantix. FOLLOWUP: Follow up with Dr. Ulysses Rajan on 12/01/17, follow up with Dr. Maldonado on November 28, 2017. EXAM: Lungs are clear. Cardiovascular 1st and 2nd sounds normal. Copy to Dr. Maldonado. MMODL / IJN: [id number] /
== END 2017-11-23 15:18 | disposition home or self-care (01) | DRG 247 ==
LOC: EC 16:31 → 6ICU 16:45 → 6SEL 11-21 11:58
PROVIDERS: ADMIT Hospitalist; ATTEND Hospitalist
PROC: 4A023N7 Measurement of Cardiac Sampling and Pressure, Left Heart, Percutaneous Approach (ICD-10-PCS; principal; 2017-11-20 16:34)
PROC: B2111ZZ Fluoroscopy of Multiple Coronary Arteries using Low Osmolar Contrast (ICD-10-PCS; principal; 2017-11-20 16:34)
PROC: 027035Z Dilation of Coronary Artery, One Artery with Two Drug-eluting Intraluminal Devices, Percutaneous Approach (ICD-10-PCS; principal; 2017-11-20 16:34)
DX: I21.09 ST elevation (STEMI) myocardial infarction involving other coronary artery of anterior wall (principal); I47.2 Ventricular tachycardia; I47.1 Supraventricular tachycardia; I25.5 Ischemic cardiomyopathy; E66.9 Obesity, unspecified; I25.10 Atherosclerotic heart disease of native coronary artery without angina pectoris; Z68.32 Body mass index [BMI] 32.0-32.9, adult; F17.210 Nicotine dependence, cigarettes, uncomplicated; M19.91 Primary osteoarthritis, unspecified site; Z79.899 Other long term (current) drug therapy; Z88.0 Allergy status to penicillin; E78.5 Hyperlipidemia, unspecified
CPT/HCPCS: 36415; 80048; 80053; 80061; 82550; 82553; 83735; 84484; 85025; 85027; 85610; 85730; 93005; 93306; 93458; 99285